=== PATIENT | male | born 1995 | race Two or more races ===

== ENCOUNTER 2019-10-15 15:40 | Emergency (ER) | payer OTHER ==
[~2019-10-15] VITALS: Ht 172.7 cm; Wt 61.4 kg
[2019-10-15 15:46] VITALS: BP 114/71
--- NOTE | 2019-10-15 15:56 | NUR ---
PATIENT BROTHER: ALECIA [phone], HE IS RIDE HOME
--- NOTE | 2019-10-15 16:48 | NUR ---
Dr Cruz, assisted by AMINA Love, Joselito VICK and myself worked to manipulate the patient's shoulder back into place without anesthesia per Patient's request. Efforts were successful.
== END 2019-10-15 16:59 | disposition home or self-care (01) ==
LOC: ER 15:41
DX: S43.005A Unspecified dislocation of left shoulder joint, initial encounter (principal); X50.1XXA Overexertion from prolonged static or awkward postures, initial encounter; Y93.89 Activity, other specified; Y92.69 Other specified industrial and construction area as the place of occurrence of the external cause; Y99.9 Unspecified external cause status
CPT/HCPCS: 23650; 73030; 99284